=== PATIENT | female | born 1965 | race Caucasian/White ===

== ENCOUNTER 2019-09-06 09:37 | Day surgery (SDC) | payer OTHER ==
[2019-08-28 17:02] VITALS: BMI 30.4
[2019-09-06 12:05] VITALS: TEMP 97.6
[2019-09-06 12:07] VITALS: BP 103/62; PULSE 60
== END 2019-09-06 12:20 | disposition home or self-care (01) ==
LOC: FASU-ENDO 09:37 → EDBD 13:30
PROVIDERS: ATTEND Internal Medicine Gastroenterology
PROC: 0DJD8ZZ Inspection of Lower Intestinal Tract, Via Natural or Artificial Opening Endoscopic (ICD-10-PCS; principal; 2019-09-06 10:30)
DX: Z12.11 Encounter for screening for malignant neoplasm of colon (principal); K64.1 Second degree hemorrhoids
CPT/HCPCS: 84703